=== PATIENT | female | born 1975 | race Caucasian/White ===

== ENCOUNTER 2017-03-19 22:34 | Emergency (ER) | payer MEDICAID ==
[~2017-03-19] VITALS: Ht 167.6 cm; Wt 104.0 kg
[2017-03-19 22:46] VITALS: BP 132/78
== END 2017-03-20 01:05 | disposition left against medical advice (07) ==
LOC: ER 22:34
DX: F41.9 Anxiety disorder, unspecified (principal); Z53.21 Procedure and treatment not carried out due to patient leaving prior to being seen by health care provider